=== PATIENT | male | born 1960 | race Caucasian/White ===

== ENCOUNTER 2019-11-29 23:26 | Inpatient (IN) | payer MEDICAID ==
[~2019-11-29] VITALS: Ht 167.6 cm; Wt 76.4 kg
--- NOTE | 2019-11-29 23:43 | NUR ---
Patient BIB ambulance as a xfer from [facility] for tarry stools and abd pain. Patient c/o epigastric cramping. + diarrhea prior to checking in at [facility]. Denies N/V. Patient has had a cough and was tested for COVID at [facility]. Patient is in NAD. Respirations even and unlabored.
--- NOTE | 2019-11-30 00:05 | NUR ---
TASK RN: REPORT OF PT FROM NADIRA LA AND ASSUMING CARE OF PT DURING PRIMARY RN LUNCH BREAK.
[2019-11-30] MEDS ORDERED: SODIUM CHLORIDE FLUSH 10ML SYR IVF PRN (01:00)
[2019-11-30] MEDS ORDERED: PANTOPRAZOLE 80 MG in SODIUM CHLORIDE 0.9% 50 ML IVPB ONE (01:39)
[2019-11-30] MEDS ORDERED: hydrALAzine 20 MG/ML, 1ML IVPush PRN (02:00)
[2019-11-30] MEDS ORDERED: ONDANSETRON 2MG/ML, 2ML IVPush PRN (02:00)
[2019-11-30] MEDS ORDERED: morphine SULFATE 10 MG/ML, 1ML IVPush PRN (02:00)
[2019-11-30] MEDS ORDERED: ONDANSETRON 2MG/ML, 2ML IV PRN (02:00)
--- NOTE | 2019-11-30 02:21 | NUR ---
Report given to ANDIRA Tate in ICU.
[2019-11-30 02:25] LABS: MEAN CORPUSCULAR HGB CONC 33.7 g/dL (33.2-36.2); MEAN CORPUSCULAR VOLUME 94.8 fL (81-97); RED BLOOD COUNT 3.18 x10^6/uL (4.38-5.82); RED CELL DISTRIBUTION WIDTH 17.1 % (9.4-14.8)
[2019-11-30 02:31] LABS: INTERNATIONAL NORMALIZED RATIO 1.37 (0.93-1.1); PROTHROMBIN TIME 14.6 Seconds (9.6-11.5)
[2019-11-30 02:36] LABS: ALANINE AMINOTRANSFERASE 43 U/L (12-78); ALBUMIN 2.5 g/dL (3.4-5.0); ANION GAP 8 mmol/L (5-15); CALCIUM 7.5 mg/dL (8.5-10.1); CHLORIDE 100 mmol/L (98-107); CREATININE 0.44 mg/dL (0.7-1.3)
[2019-11-30 02:37] LABS: MD YES; MEAN PLATELET VOLUME 8.9 fL (7.4-10.4); PLATELET COUNT 71 x10^3/uL (130-400)
[2019-11-30 02:41] LABS: ALKALINE PHOSPHATASE 221 U/L (45-117); BILIRUBIN,TOTAL 2.3 mg/dL (0.2-1.0); TOTAL PROTEIN 5.9 g/dL (6.4-8.2)
[2019-11-30 02:44] LABS: <PLATELET ESTIMATE> DECREASED; ANISOCYTOSIS 1+; BAND#(MANUAL) 0.07 x10^3/uL; BANDS%(MANUAL) 1 % (0-7); BASOS#(MANUAL) 0.07 x10^3/uL (0-0.1); BASOS% (MANUAL) 1 % (0-1); EOS#(MANUAL) 0.07 x10^3/uL (0.0-0.4); EOS% (MANUAL) 1 % (1-7); LARGE PLATELETS 1+; LYMPH#(MANUAL) 0.79 x10^3/uL (1-3.4); LYMPHS% (MANUAL) 11 % (22-44); MONOS#(MANUAL) 0.72 x10^3/uL (0.3-2.7); MONOS% (MANUAL) 10 % (2-9); NRBC % (MANUAL) 1 % (0-1); POLYCHROMASIA 1+; SEG#(MANUAL) 5.47 x10^3/uL (1.8-6.8); SEGS% (MANUAL) 76 % (42-75)
[2019-11-30] MEDS: PANTOPRAZOLE 80 MG in SODIUM CHLORIDE 0.9% 100 ML IV SCH ×3 (02:48→23:01)
[2019-11-30 04:00] VITALS: BP 108/71
[2019-11-30 05:34] LABS: AMPHETAMINE SCREEN, URINE Negative (Negative); BARBITURATE SCREEN, URINE Negative (Negative); BENZODIAZEPINE SCREEN, URINE Negative (Negative); CANNABINOID SCREEN, URINE Positive (Negative); COCAINE SCREEN, URINE Negative (Negative); METHADONE SCREEN, URINE Negative (Negative); OPIATE SCREEN, URINE Negative (Negative)
[2019-11-30] MEDS: POTASSIUM CHLORIDE 20 MEQ, MAGNESIUM SULFATE 2 GM, THIAMINE 200 MG, MVI ADULT 10 ML, FO... IV SCH (05:50)
[2019-11-30 08:00] VITALS: BP 103/55
[2019-11-30] MEDS ORDERED: LORazepam 2 MG/ML, 1ML IV PRN ×4 (11:00)
[2019-11-30] MEDS: THIAMINE 200 MG in SODIUM CHLORIDE 0.9% 50 ML IV SCH (11:28)
[2019-11-30] MEDS ORDERED: PHYTONADIONE 5 MG TABLET PO ONE (12:30)
[2019-11-30 14:12] VITALS: BP 124/75
[2019-11-30 20:00] VITALS: BP 124/84
[2019-11-30] MEDS: TRAZODONE 50MG TABLET PO PRN (21:32)
[2019-12-01] MEDS: TRAZODONE 50MG TABLET PO PRN ×2 (00:19→22:21)
[2019-12-01 02:00] VITALS: BP 120/68
[2019-12-01] MEDS: POTASSIUM CHLORIDE 20 MEQ, MAGNESIUM SULFATE 2 GM, THIAMINE 200 MG, MVI ADULT 10 ML, FO... IV SCH (04:37)
[2019-12-01 06:09] LABS: INTERNATIONAL NORMALIZED RATIO 1.28 (0.93-1.1); PROTHROMBIN TIME 13.6 Seconds (9.6-11.5)
[2019-12-01 06:11] LABS: ALBUMIN 2.5 g/dL (3.4-5.0); ANION GAP 7 mmol/L (5-15); CALCIUM 8.1 mg/dL (8.5-10.1); CHLORIDE 103 mmol/L (98-107)
[2019-12-01 06:15] LABS: ALANINE AMINOTRANSFERASE 40 U/L (12-78); ALKALINE PHOSPHATASE 232 U/L (45-117); BILIRUBIN,TOTAL 3.3 mg/dL (0.2-1.0); CREATININE 0.46 mg/dL (0.7-1.3)
[2019-12-01 06:25] LABS: MEAN CORPUSCULAR HEMOGLOBIN 32.9 pg (27.5-34.5); MEAN CORPUSCULAR HGB CONC 34.1 g/dL (33.2-36.2); MEAN CORPUSCULAR VOLUME 96.4 fL (81-97); MEAN PLATELET VOLUME 8.4 fL (7.4-10.4); RED BLOOD COUNT 3.17 x10^6/uL (4.38-5.82); RED CELL DISTRIBUTION WIDTH 16.5 % (9.4-14.8)
[2019-12-01 06:51] LABS: PLATELET COUNT 49 x10^3/uL (130-400)
[2019-12-01 06:53] LABS: MD YES
[2019-12-01 06:55] LABS: <PLATELET ESTIMATE> DECREASED; <PLT MORPHOLOGY> NORMAL PLT MORPH; ANISOCYTOSIS 1+; EOS#(MANUAL) 0.27 x10^3/uL (0.0-0.4); EOS% (MANUAL) 7 % (1-7); LYMPH#(MANUAL) 0.42 x10^3/uL (1-3.4); LYMPHS% (MANUAL) 11 % (22-44); MONOS#(MANUAL) 0.38 x10^3/uL (0.3-2.7); MONOS% (MANUAL) 10 % (2-9); POLYCHROMASIA 1+; SEG#(MANUAL) 2.74 x10^3/uL (1.8-6.8); SEGS% (MANUAL) 72 % (42-75)
[2019-12-01] MEDS: PANTOPRAZOLE 80 MG in SODIUM CHLORIDE 0.9% 100 ML IV SCH ×2 (08:50→22:21)
[2019-12-01 08:56] VITALS: BP 131/68
[2019-12-01] MEDS ORDERED: POTASSIUM CHLORIDE 20 MEQ TAB.ER.PRT PO ONE ×3 (10:00→21:00)
[2019-12-01] MEDS: THIAMINE 200 MG in SODIUM CHLORIDE 0.9% 50 ML IV SCH (11:52)
[2019-12-01] MEDS ORDERED: MAGNESIUM SULFATE PMX 4GM/100M 100 ML IV ONE (14:00)
[2019-12-01 14:27] VITALS: BP 137/101
[2019-12-01 23:54] VITALS: BP 124/84
[2019-12-02 03:23] VITALS: BP 135/91
[2019-12-02 05:01] LABS: MEAN CORPUSCULAR HEMOGLOBIN 32.7 pg (27.5-34.5); MEAN CORPUSCULAR VOLUME 96.3 fL (81-97); MEAN PLATELET VOLUME 8.2 fL (7.4-10.4); PLATELET COUNT 52 x10^3/uL (130-400); RED CELL DISTRIBUTION WIDTH 16.1 % (9.4-14.8)
[2019-12-02 05:09] LABS: ANION GAP 8 mmol/L (5-15); CHLORIDE 105 mmol/L (98-107)
[2019-12-02] MEDS: POTASSIUM CHLORIDE 20 MEQ, MAGNESIUM SULFATE 2 GM, THIAMINE 200 MG, MVI ADULT 10 ML, FO... IV SCH (05:38)
[2019-12-02 06:02] LABS: BASOPHILS # (AUTO) 0.02 x10^3/uL (0-0.1); BASOPHILS % (AUTO) 1 % (0-1); EOSINOPHILS # (AUTO) 0.14 x10^3/uL (0-0.4); EOSINOPHILS % (AUTO) 3 % (1-7); LYMPHOCYTES # (AUTO) 0.64 x10^3/uL (1-3.4); LYMPHOCYTES % (AUTO) 16 % (22-44); MD SCAN; MONOCYTES # (AUTO) 0.68 x10^3/uL (0.2-0.8); MONOCYTES % (AUTO) 17 % (2-9); NEUTROPHILS # (AUTO) 2.58 x10^3/uL (1.8-6.8); NEUTROPHILS % (AUTO) 63 % (42-75)
[2019-12-02] MEDS ORDERED: POTASSIUM CHLORIDE 20 MEQ TAB.ER.PRT PO ONE (07:00)
[2019-12-02 08:16] VITALS: BP 132/81
[2019-12-02] MEDS: THIAMINE 200 MG in SODIUM CHLORIDE 0.9% 50 ML IV SCH (11:10)
[2019-12-02] MEDS: PANTOPRAZOLE 80 MG in SODIUM CHLORIDE 0.9% 100 ML IV SCH ×2 (12:00→19:00)
[2019-12-02 14:00] VITALS: BP 122/82
[2019-12-02 20:15] VITALS: BP 131/88
[2019-12-03 02:06] VITALS: BP 129/74
[2019-12-03] MEDS: PANTOPRAZOLE 80 MG in SODIUM CHLORIDE 0.9% 100 ML IV SCH (02:43)
[2019-12-03] MEDS: POTASSIUM CHLORIDE 20 MEQ, MAGNESIUM SULFATE 2 GM, THIAMINE 200 MG, MVI ADULT 10 ML, FO... IV SCH (06:02)
[2019-12-03 07:43] LABS: ANION GAP 7 mmol/L (5-15); CALCIUM 8.2 mg/dL (8.5-10.1); CHLORIDE 107 mmol/L (98-107); CREATININE 0.55 mg/dL (0.7-1.3)
[2019-12-03 08:01] LABS: MEAN CORPUSCULAR HEMOGLOBIN 32.6 pg (27.5-34.5); MEAN CORPUSCULAR HGB CONC 33.4 g/dL (33.2-36.2); MEAN CORPUSCULAR VOLUME 97.6 fL (81-97); MEAN PLATELET VOLUME 7.7 fL (7.4-10.4); PLATELET COUNT 62 x10^3/uL (130-400); RED BLOOD COUNT 3.29 x10^6/uL (4.38-5.82)
[2019-12-03 08:02] LABS: MD SCAN
[2019-12-03 08:03] LABS: BASOPHILS # (AUTO) 0.02 x10^3/uL (0-0.1); BASOPHILS % (AUTO) 0 % (0-1); EOSINOPHILS # (AUTO) 0.12 x10^3/uL (0-0.4); EOSINOPHILS % (AUTO) 3 % (1-7); LYMPHOCYTES # (AUTO) 0.68 x10^3/uL (1-3.4); LYMPHOCYTES % (AUTO) 15 % (22-44); MONOCYTES # (AUTO) 0.81 x10^3/uL (0.2-0.8); MONOCYTES % (AUTO) 18 % (2-9); NEUTROPHILS # (AUTO) 2.86 x10^3/uL (1.8-6.8); NEUTROPHILS % (AUTO) 64 % (42-75)
[2019-12-03] MEDS: PANTOPRAZOLE 40 MG IV IVPush SCH ×2 (09:11→20:16)
[2019-12-03 13:23] VITALS: BP 117/69
[2019-12-03] MEDS ORDERED: POTASSIUM CHLORIDE 20 MEQ TAB.ER.PRT PO ONE ×2 (16:00→18:00)
[2019-12-03 20:21] VITALS: BP 134/76
[2019-12-04 02:41] VITALS: BP 117/44
[2019-12-04] MEDS: PANTOPRAZOLE 40 MG IV IVPush SCH ×2 (07:43→19:50)
[2019-12-04 08:26] LABS: ANION GAP 6 mmol/L (5-15); CALCIUM 8.6 mg/dL (8.5-10.1); CHLORIDE 108 mmol/L (98-107); CREATININE 0.62 mg/dL (0.7-1.3)
[2019-12-04 08:54] LABS: MEAN CORPUSCULAR HEMOGLOBIN 32.4 pg (27.5-34.5); MEAN CORPUSCULAR HGB CONC 32.9 g/dL (33.2-36.2); MEAN CORPUSCULAR VOLUME 98.6 fL (81-97); MEAN PLATELET VOLUME 8.1 fL (7.4-10.4); PLATELET COUNT 81 x10^3/uL (130-400); RED BLOOD COUNT 3.58 x10^6/uL (4.38-5.82); RED CELL DISTRIBUTION WIDTH 17.6 % (9.4-14.8)
[2019-12-04 08:55] LABS: BASOPHILS # (AUTO) 0.03 x10^3/uL (0-0.1); BASOPHILS % (AUTO) 1 % (0-1); EOSINOPHILS # (AUTO) 0.22 x10^3/uL (0-0.4); EOSINOPHILS % (AUTO) 4 % (1-7); LYMPHOCYTES # (AUTO) 0.74 x10^3/uL (1-3.4); LYMPHOCYTES % (AUTO) 15 % (22-44); MD SCAN; MONOCYTES # (AUTO) 0.81 x10^3/uL (0.2-0.8); MONOCYTES % (AUTO) 16 % (2-9); NEUTROPHILS # (AUTO) 3.27 x10^3/uL (1.8-6.8); NEUTROPHILS % (AUTO) 65 % (42-75)
[2019-12-04 08:56] VITALS: BP 105/72
[2019-12-04 13:05] VITALS: BP 114/77
[2019-12-04] MEDS ORDERED: POTASSIUM CHLORIDE 20 MEQ TAB.ER.PRT PO ONE (15:30)
[2019-12-04 20:00] VITALS: BP 120/76
[2019-12-04 20:26] VITALS: BP 120/76
[2019-12-04 21:42] VITALS: BP 123/56
[2019-12-05 00:45] VITALS: BP 119/78
[2019-12-05 07:10] VITALS: BP 121/81
[2019-12-05] MEDS: PANTOPRAZOLE 40 MG IV IVPush SCH (09:50)
[2019-12-05] MEDS ORDERED: MULT-658 PO (10:37)
[2019-12-05] MEDS ORDERED: FOLI-17 PO (10:37)
[2019-12-05] MEDS ORDERED: THIA100T27 PO (10:37)
[2019-12-05] MEDS ORDERED: PANT40TA3 PO (10:37)
[2019-12-05] MEDS ORDERED: POTASSIUM CHLORIDE 20 MEQ TAB.ER.PRT PO ONE (12:00)
== END 2019-12-05 12:00 | disposition left against medical advice (07) | DRG 254 ==
LOC: ED 23:48 → EDIP 11-30 00:54 → ICU 11-30 02:26 → 3WST 12-02 12:40 → 3E 12-03 10:53 → 3N 12-04 21:19
PROVIDERS: ADMIT Family Medicine; ATTEND Hospitalist
DX: K92.1 Melena (principal); G93.41 Metabolic encephalopathy; D68.9 Coagulation defect, unspecified; D69.6 Thrombocytopenia, unspecified; D62 Acute posthemorrhagic anemia; E87.1 Hypo-osmolality and hyponatremia; K70.30 Alcoholic cirrhosis of liver without ascites; K70.10 Alcoholic hepatitis without ascites; F12.10 Cannabis abuse, uncomplicated; Z59.0 Homelessness; Z87.11 Personal history of peptic ulcer disease; Z90.49 Acquired absence of other specified parts of digestive tract; Z53.29 Procedure and treatment not carried out because of patient's decision for other reasons; F10.229 Alcohol dependence with intoxication, unspecified; Z20.828 Contact with and (suspected) exposure to other viral communicable diseases
CPT/HCPCS: 36415; 84145; 99285; J7042; 71045; 76700; 80048; 80053; 80074; 80307; 82140; 83735; 83880; 84100; 84132; 85014; 85018; 85025; 85610; 87081; G0378; J3411; J3475; J3480; C9113